=== PATIENT | male | born 1965 | race Caucasian/White ===

== ENCOUNTER 2018-02-25 16:14 | Emergency (ER) | payer OTHER, SELFPAY ==
[2018-02-25 16:19] VITALS: PULSE 74; RESP 24; TEMP 36.3; O2SAT 100
[2018-02-25] MEDS: HYDROMORPHONE 0.5 MG INJ IV ×2 (16:46→17:23)
--- NOTE | 2018-02-25 16:49 | ED.MALEGU ---
HPI - Male Genitourinary General Chief complaint: Urogenital-Male Stated complaint: right side lower abdominal pain Time Seen by Provider: 02/25/18 16:32 Source: patient and family Mode of arrival: ambulatory Limitations: no limitations History of Present Illness HPI Narrative: 52-year-old male who is otherwise healthy presents with right lower quadrant/right groin pain that radiates to his right testicle that began without explanation several hours ago and has become severe the past 2 hr rated at a 10/10. He has not had pain like this previously. Denies fevers or chills. Denies diarrhea or constipation. He has had nausea but not vomited. Denies bulge in the groin or history of trauma. Related Data Home Medications Medication Instructions Recorded Confirmed No Known Home Medications 02/25/18 02/25/18 Previous Rx's Medication Instructions Recorded hydrocodone-acetaminophen [[place]] 1 tab PO Q4-6H PRN #14 tab 02/25/18 ondansetron HCl [Zofran] 4 mg PO Q6H PRN #14 tab 02/25/18 tamsulosin [Flomax] 0.4 mg PO DAILY #20 cap 02/25/18 Allergies Allergy/AdvReac Type Severity Reaction Status Date / Time No Known Drug Allergies Allergy Verified 02/25/18 16:24 Review of Systems Review of Systems All systems reviewed & are unremarkable except as noted in HPI and below Constitutional Denies chills, Denies fever(s), Denies lethargy and Denies weakness Eyes Denies change in vision, Denies eye discharge, Denies irritation and Denies loss of vision ENT Ears, Nose, Mouth, and Throat: Denies change in voice, Denies neck pain and Denies sore throat Cardiovascular Denies chest pain, Denies irregular heart rhythm, Denies lightheadedness, Denies palpitations, Denies dyspnea, Denies dyspnea on exertion and Denies orthopnea Respiratory Denies cough, Denies dyspnea, Denies dyspnea on exertion and Denies wheezing Gastrointestinal Gastrointestinal: Reports abdominal pain, Denies change in bowel habits, Denies diarrhea, Denies nausea and Denies vomiting Genitourinary Denies hematuria, Denies difficulty urinating, Reports genital pain, Denies flank pain, Denies penile discharge, Denies scrotal swelling, Denies testicular mass, Reports testicular pain, Denies urinary incontinence and Denies urinary urgency Musculoskeletal Denies neck pain Integumentary/Breasts Denies pruritus, Denies erythema, Denies rash and Denies wounds Neurologic Denies confusion, Denies loss of vision and Denies weakness Psychiatric Denies anxiety, Denies confusion, Denies depression, Denies homicidal ideation and Denies suicidal ideation Endocrine Denies palpitations Hematologic/Lymphatic Denies easy bruising Allergic/Immunologic Denies wheezing Exam Initial Vital Signs Initial Vital Signs: Vital Signs Temperature 97.4 F L 02/25/18 16:19 Pulse Rate 74 02/25/18 16:19 Respiratory Rate 24 02/25/18 16:19 Pulse Oximetry 100 02/25/18 16:19 Const General: cooperative and well developed Nutritional Appearance: well nourished Orientation: alert, awake, oriented x3 and not confused [facility] Head: normocephalic and atraumatic Ears: external ears normal and TM's normal bilaterally Nose: external nose normal and No nasal discharge Face and sinus: sinuses nontender, face symmetric, no sinus tenderness and No dry mucous membranes Mouth: oral mucosae normal and moist mucous membranes Teeth and gingiva: dentition normal Throat: tonsils normal and uvula midline Eyes General: appearance normal, both eyes and all related structures Eyelids: eyelids normal Conjunctivae: conjunctivae normal Sclera: sclerae normal Pupils: PERRL EOM: EOM intact bilaterally Neck Neck: normal visual inspection, trachea midline, No lymphadenopathy, No midline deformity and No JVD Lymphatic: No lymphedema Chest Chest: normal inspection of the chest Resp Effort & Inspection: normal respiratory effort, able to speak in complete sentences, no respiratory distress and no use of accessory muscles Auscultation: clear to auscultation bilaterally, no rales, no rhonchi and no wheezes Cardio Rate: regular rate Rhythm: regular rhythm Heart Sounds: no click, no gallops, no murmurs and no rubs Pulses: normal peripheral pulses GI Inspection: non-distended Palpation: soft, no hepatosplenomegaly, No guarding, No pulsatile mass and No tender Auscultation: normal bowel sounds External: normal external exam, circumcised, no ecchymosis, no edema, no erythema, no hernia, no inguinal lymphadenopathy, no lesions, no scrotal swelling and tenderness Penis: normal penis Meatus: meatus normal and no meatla discharge Scrotum: scrotum normal, no ecchymosis, not edematous, not erythematous, no masses, no scrotal swelling and no varicoceles Testes: testicular lie normal, epididymides normal, no epididymal induration, no epidiymal masses, no testicular mass, no testicular swelling and no testicular tenderness Back/Spine/Pelvis Back: No CVA tenderness Cervical Spine: cervical ROM normal and No pain with cervical ROM Thoracic/Lumbar Spine: thoracic and lumbar spine normal to inspection Skin General: no rashes or lesions noted, No jaundice and No petechiae Neuro General: alert, oriented x3, gait normal and no focal motor deficits Speech: speech normal Extrem General: full ROM, no clubbing, cyanosis or edema, no pedal edema and no calf tenderness Psych Appearance: well kempt Mental Status: mental status grossly normal Attitude: cooperative Thought Content: normal and suicidality Judgment: judgment good Course Orders Ordered: ED Orders 02/25/18 16:40 Complete Blood Count AUTO DIFF Stat Comprehensive Metabolic Panel Stat 02/25/18 17:03 CT abdomen pelvis w con Stat 02/25/18 17:41 Urinalysis and Microscopic Stat Discontinued Medications Hydromorphone HCl (Dilaudid) 0.5 mg IV NOW ONE Stop: 02/25/18 16:49 Last Admin: 02/25/18 16:46 Dose: 0.5 mg Hydromorphone HCl (Dilaudid) 0.5 mg IV NOW ONE Stop: 02/25/18 17:04 Last Admin: 02/25/18 17:23 Dose: 0.5 mg Ketorolac Tromethamine (Toradol) 30 mg IV NOW ONE Stop: 02/25/18 18:12 Last Admin: 02/25/18 18:26 Dose: 30 mg Tamsulosin HCl (Flomax) 0.4 mg PO NOW ONE Stop: 02/25/18 18:12 Last Admin: 02/25/18 18:26 Dose: 0.4 mg Vital Signs - 8 hr 02/25/18 16:19 02/25/18 17:30 02/25/18 18:24 Temperature 97.4 F L Pulse Rate 74 76 82 Respiratory Rate 24 14 14 Blood Pressure [Right Arm] 125/75 H 120/73 Pulse Oximetry 100 100 98 02/25/18 18:51 Temperature Pulse Rate 84 Respiratory Rate 13 Blood Pressure [Right Arm] 114/63 Pulse Oximetry 97 MDM - Male Genitourinary Differential Diagnosis Likely urinary tract infection, epididymitis, prostatitis, acute retention of urine, inguinal hernia and other Lab Data Attestation: I reviewed the patient's lab results. Result diagrams: 02/25/18 16:40 02/25/18 16:40 Lab Results 02/25/18 02/25/18 02/25/18 Range/Units 16:40 16:40 17:41 WBC 10.7 (4.5-11.0) X10^3/uL RBC 5.32 (4.5-5.9) X10^6/uL Hgb 15.9 (13.5-17.5) g/dL Hct 46.5 (41-53) % MCV 87.3 (80-100) fL MCH 29.9 (26-34) PG MCHC 34.2 (30-36) % RDW 14.0 (11.6-14.8) % Plt Count 244 (150-400) X10^3/uL Neut % (Auto) 78.6 H (50-75) % Lymph % (Auto) 13.9 L (25-40) % [place] % (Auto) 6.7 (3-14) % Eos % (Auto) 0.6 L (2-4) % Baso % (Auto) 0.2 (0-2) % Neut # (Auto) 8400 H (8730-2228) /uL Sodium 141 (137-145) mmol/L Potassium 3.4 (3.4-5.1) mmol/L Chloride 101 (98-107) mmol/L Carbon Dioxide 25 (22-32) mmol/L BUN 21 H (9-20) mg/dL Creatinine 1.30 H (0.66-1.25) mg/dL Estimated GFR 57.5 L (>60) mL/min BUN/Creatinine Ratio 16.2 (6-22) Glucose 123 H (70-100) mg/dL Calcium 9.4 (8.4-10.2) mg/dL Total Bilirubin 0.9 (0.2-1.3) mg/dL AST 41 (17-59) IU/L ALT 39 (21-72) IU/L Alkaline Phosphatase 77 (38-126) U/L Total Protein 8.0 (6.3-8.2) g/dL Albumin 4.8 (3.5-5.0) g/dL Globulin 3.2 (1.7-4.1) g/dL Albumin/Globulin Ratio 1.5 (1.0-2.8) Urine Color Yellow Urine Appearance Clear Urine pH 7.0 (4.5-8.0) Ur Specific [place] 1.015 (1.000-1.035) Urine Protein Negative (Negative) Urine Glucose (UA) Negative (Normal) g/dL Urine Ketones 1+ H (NEGATIVE) Urine Occult Blood 3+ H (Negative) Urine Nitrate Negative (Negative) Urine Bilirubin Negative (NEGATIVE) Urine Urobilinogen 0.2 (0.2) E.U./dL Ur Leukocyte Esterase Negative (NEGATIVE) Urine RBC 10-30/hpf H (0-5/HPF) Urine WBC None seen (0-5/HPF) Urine Bacteria None seen (None) Ur Culture Indicated? Cult not indicated Micro UA Comment Not Reportable Imaging Data CT scan - abdomen: Radiologist's impression: PROCEDURE: CT ABDOMEN PELVIS W CON INDICATIONS: right groin pain radiating to testicle TECHNIQUE: After the administration of intravenous contrast, 5 mm thick sections acquired from the diaphragm to the symphysis. 5 mm coronal and sagittal reformats were acquired. For radiation dose reduction, the following was used: automated exposure control, adjustment of mA and/or kV according to patient size. COMPARISON: None. FINDINGS: Image quality: Excellent. ABDOMEN: Lung bases: Lung bases are clear. Heart size is normal. Solid organs: Liver is normal in size and enhancement and there is a single right posterior hepatic segment hypodensity which is nonspecific in appearance, measures only 1 cm in maximal dimension and has a small focus of adjacent marginal enhancement, suggestive of hemangioma. Gallbladder has been previously resected. Biliary system is non dilated. Pancreas enhances normally. Spleen is normal in size and enhancement. No adrenal nodules. Kidneys demonstrate normal size but asymmetric enhancement, reduced on the right,, without hydronephrosis on the left. There is right-sided mild to moderate hydronephrosis and hydroureter to the far distal submucosal tunnel portion of the right ureter where a 2 x 4 mm impacted far distal ureteral stone is present. This results in a mild degree of right sided perinephric edema. Peritoneum and bowel: Bowel loops demonstrate normal wall thickness and caliber. No free fluid or air. Nodes and vessels: No retroperitoneal or mesenteric adenopathy by size criteria. Aorta and inferior vena cava are normal in size. Miscellaneous: No ventral hernias. PELVIS: Genitourinary: Bladder wall thickness is normal. Distal right ureteral 2 x 4 mm calculus. Miscellaneous: No inguinal hernias or adenopathy. Moderate sigmoid diverticulosis, no definite acute diverticulitis. Bones: No suspicious bony lesions. No vertebral body compression fractures. IMPRESSION: 2 x 4 mm far distal right ureteral stone impacted at the submucosal tunnel portion of the distal right ureter, virtually at the bladder lumen, causing mild to moderate right-sided hydronephrosis and hydroureter and slight hypoenhancement of the right renal cortex. A stone of this small size generally will pass without urologic intervention. Moderate sigmoid diverticulosis without acute diverticulitis. Dictated by: Tc Tolbert M.D. on 02/25/2018 at 17:56 Approved by: Tc Tolbert M.D. on 02/25/2018 at 18:00 MDM Narrative Medical decision making narrative: CT scan shows stone and UA is consistent with this with hematuria. There is no sign of infection by vital signs, from the appearance of the urine, or by his lab work. Advised Flomax, Zofran, NSAIDs, and hydrocodone for severe pain. Also advise strain urine and follow up with primary care within 1 week. Return to the ER for worsening. I suspect given the size of the stone should pass without difficulty. He was also advised to followup there are signs of infection such as fever, chills, or dysuria. Discharge Plan Departure Patient Disposition: Home, Self-Care Clinical Impression: Ureterolithiasis, Renal colic on right side Discharge Date/Time: 02/25/18 19:03 Interventions: ED Discharge Assessment Last Done: 02/25/18 19:02 Instructions: DI for Kidney Stones Activity Restrictions/Additional Instructions: Thank you for trusting us with your care today. You have a kidney stone on the right side about to pass. Take the flomax daily, use ibuprofen 800mg up to three times daily as needed for pain and hydrocodone as needed for severe pain. Use zofran as needed for nausea. Follow up with your primary care provider within the next week for a recheck. Return to the ER for new or worsening symptoms. Prescriptions: New hydrocodone-acetaminophen [[place]] 5-325 mg tablet 1 tab PO Q4-6H PRN (Reason: pain) Qty: 14 RF: 0 ondansetron HCl [Zofran] 4 mg tablet 4 mg PO Q6H PRN (Reason: nausea and vomiting) Qty: 14 RF: 0 tamsulosin [Flomax] 0.4 mg capsule,extended release 24hr 0.4 mg PO DAILY Qty: 20 RF: 0 No Action No Known Home Medications RF: 0
--- NOTE | 2018-02-25 16:59 | PC.NURSE ---
Pain started 2 hours ago. States pain in groin down to right testicle. Denies any trauma. States he had abdominal cramping 2 days ago, but no other symptoms. Denies urinary or bowel problems. Family hx of kidney stones.
--- NOTE | 2018-02-25 17:03 | DI.CT.S_ITS ---
PROCEDURE: CT ABDOMEN PELVIS W CON INDICATIONS: right groin pain radiating to testicle TECHNIQUE: After the administration of intravenous contrast, 5 mm thick sections acquired from the diaphragm to the symphysis. 5 mm coronal and sagittal reformats were acquired. For radiation dose reduction, the following was used: automated exposure control, adjustment of mA and/or kV according to patient size. COMPARISON: None. FINDINGS: Image quality: Excellent. ABDOMEN: Lung bases: Lung bases are clear. Heart size is normal. Solid organs: Liver is normal in size and enhancement and there is a single right posterior hepatic segment hypodensity which is nonspecific in appearance, measures only 1 cm in maximal dimension and has a small focus of adjacent marginal enhancement, suggestive of hemangioma. Gallbladder has been previously resected. Biliary system is non dilated. Pancreas enhances normally. Spleen is normal in size and enhancement. No adrenal nodules. Kidneys demonstrate normal size but asymmetric enhancement, reduced on the right,, without hydronephrosis on the left. There is right-sided mild to moderate hydronephrosis and hydroureter to the far distal submucosal tunnel portion of the right ureter where a 2 x 4 mm impacted far distal ureteral stone is present. This results in a mild degree of right sided perinephric edema. Peritoneum and bowel: Bowel loops demonstrate normal wall thickness and caliber. No free fluid or air. Nodes and vessels: No retroperitoneal or mesenteric adenopathy by size criteria. Aorta and inferior vena cava are normal in size. Miscellaneous: No ventral hernias. PELVIS: Genitourinary: Bladder wall thickness is normal. Distal right ureteral 2 x 4 mm calculus. Miscellaneous: No inguinal hernias or adenopathy. Moderate sigmoid diverticulosis, no definite acute diverticulitis. Bones: No suspicious bony lesions. No vertebral body compression fractures. IMPRESSION: 2 x 4 mm far distal right ureteral stone impacted at the submucosal tunnel portion of the distal right ureter, virtually at the bladder lumen, causing mild to moderate right-sided hydronephrosis and hydroureter and slight hypoenhancement of the right renal cortex. A stone of this small size generally will pass without urologic intervention. Moderate sigmoid diverticulosis without acute diverticulitis. Dictated by: Tc Tolbert M.D. on 02/25/2018 at 17:56 Approved by: Tc Tolbert M.D. on 02/25/2018 at 18:00
[2018-02-25 17:22] LABS: Add Manual Diff / Slide Review NO; Basophils Percent Auto 0.2 % (0-2); Eosinophils Percent Auto 0.6 % (2-4); Hematocrit 46.5 % (41-53); Hemoglobin 15.9 g/dL (13.5-17.5); Lymphocytes Percent Auto 13.9 % (25-40); Mean Corpuscular HGB Conc 34.2 % (30-36); Mean Corpuscular Hemoglobin 29.9 PG (26-34); Mean Corpuscular Volume 87.3 fL (80-100); Monocytes Percent Auto 6.7 % (3-14); Neutrophils Absolute Auto 8400 /uL (3000-5900); Neutrophils Percent Auto 78.6 % (50-75); Platelet Count 244 X10^3/uL (150-400); Red Blood Cell Count 5.32 X10^6/uL (4.5-5.9); White Blood Cell Count 10.7 X10^3/uL (4.5-11.0)
[2018-02-25 17:23] LABS: Alanine Aminotransferase 39 IU/L (21-72); Albumin 4.8 g/dL (3.5-5.0); Albumin Globulin Ratio 1.5 (1.0-2.8); Alkaline Phosphatase 77 U/L (38-126); Aspartate Aminotransferase 41 IU/L (17-59); BUN Creatinine Ratio 16.2 (6-22); Bilirubin Total 0.9 mg/dL (0.2-1.3); Blood Urea Nitrogen 21 mg/dL (9-20); Calcium 9.4 mg/dL (8.4-10.2); Carbon Dioxide 25 mmol/L (22-32); Chloride 101 mmol/L (98-107); Estimated Glomerular Filt Rate 57.5 mL/min (>60); Globulin 3.2 g/dL (1.7-4.1); Glucose 123 mg/dL (70-100); HEMOLYSIS 24 (0-50); Potassium 3.4 mmol/L (3.4-5.1); Sodium 141 mmol/L (137-145)
[2018-02-25 17:30] VITALS: BP 125/75; PULSE 76; RESP 14; O2SAT 100
[2018-02-25 18:19] LABS: Appearance Urine UA CLEAR; Bilirubin Urine UA NEGATIVE (NEGATIVE); Color Urine UA YELLOW; Glucose Urine UA NEGATIVE (Normal); Ketones Urine UA 1+ (NEGATIVE); Leukocyte Esterase Urine UA NEGATIVE (NEGATIVE); Nitrite Urine UA Negative (Negative); Occult Blood Urine UA 3+ (Negative); Protein Urine UA NEGATIVE (Negative); Specific Gravity Urine UA 1.015 (1.000-1.035); Urobilinogen Urine UA 0.2 E.U./dL (0.2)
[2018-02-25 18:20] LABS: Bacteria Urine None Seen; WBC Urine None Seen (0-5/HPF)
[2018-02-25 18:24] VITALS: BP 120/73; PULSE 82; RESP 14; O2SAT 98
[2018-02-25] MEDS: TAMSULOSIN 0.4 MG CAPSULE PO (18:26)
[2018-02-25] MEDS: KETOROLAC 60 MG/2 ML VIAL 30 MG IV (18:26)
[2018-02-25 18:27] LABS: Culture Indicated Urine Cult Not Indicated; RBC Urine 10-30/HPF (0-5/HPF)
[2018-02-25 18:51] VITALS: BP 114/63; PULSE 84; RESP 13; O2SAT 97
== END 2018-02-25 19:03 | disposition home or self-care (01) ==
PROVIDERS: Emergency Provider Emergency Medicine
DX: N20.1 Calculus of ureter (principal); N23 Unspecified renal colic
CPT/HCPCS: 36591; 74177; 80053; 81001; 85025; 96374; 96375; 99283; 99285; J1170; J1885; Q9967

== ENCOUNTER → 2019-08-26 18:33 | Outpatient (ROUT) | payer OTHER, SELFPAY ==
[2019-08-26 19:01] LABS: Cholesterol 252 mg/dL (140-199); Glucose 91 mg/dL (70-100); HDL Cholesterol 50 mg/dL (40-60); LDL Cholesterol Calculated 188 mg/dL (<100); Triglycerides 69 mg/dL (35-150)
[2019-08-26 19:33] LABS: Prostate Specific Antigen Scrn 0.473 ng/mL (0.1-4.0)
== END ==
PROVIDERS: Visit Provider Internal Medicine
DX: Z00.00 Encounter for general adult medical examination without abnormal findings (principal)
CPT/HCPCS: 80061; 82947; G0103